=== PATIENT | female | born 1960 | race Caucasian/White ===

== ENCOUNTER 2017-04-17 19:16 | Emergency (ER) | payer OTHER ==
[~2017-04-17] VITALS: Ht 152.4 cm; Wt 65.8 kg
[2017-04-17] MEDS ORDERED: UNK B/P MED (19:53)
[2017-04-17] MEDS ORDERED: IBUPROFEN 600600 M1 PO (20:37)
[2017-04-17] MEDS ORDERED: NORCO 5-325 TA1 EACH PO (20:37)
[2017-04-17 20:49] VITALS: BP 153/85
== END 2017-04-17 20:51 | disposition home or self-care (01) ==
LOC: ER 19:16
DX: S52.512A Displaced fracture of left radial styloid process, initial encounter for closed fracture (principal); W01.0XXA Fall on same level from slipping, tripping and stumbling without subsequent striking against object, initial encounter; Y93.01 Activity, walking, marching and hiking; Y92.89 Other specified places as the place of occurrence of the external cause; Y99.8 Other external cause status